=== PATIENT | female | born 1995 | race American Indian/Alaskan Native ===

== ENCOUNTER 2018-04-04 12:40 | Emergency (ER) | payer BC ==
[2018-04-04] MEDS ORDERED: ZOFRAN IV ONE (13:34)
[2018-04-04] MEDS ORDERED: PEPCID IV ONE (13:34)
[2018-04-04] MEDS ORDERED: NACL 0.9% 1000 ML 1,000 ML IV ONE (13:34)
--- NOTE | 2018-04-04 13:39 | Emergency Department Report ---
ED Abdominal Pain HPI - General Chief Complaint: Abdominal Pain Stated Complaint: ABDOMINAL PAIN Time Seen by Provider: 04/04/18 13:35 Source: patient Mode of arrival: Ambulatory Limitations: No Limitations - History of Present Illness Initial Comments: Patient reports abdominal pain, nausea, 3 episodes of vomiting and diarrhea that started yesterday. She reports last menstrual period was 03/30/18 Complaint: abdominal pain Onset/Timin -: hour(s) Location: epigastric Radiation: none Migration to: no migration Severity: severe Severity scale (0 -10): 8 Quality: cramping Consistency: constant Improves With: nothing Worsens With: eating, bowel movement Context: sick contacts Associated Symptoms: nausea, vomiting, diarrhea. denies: fever, chills, constipation, dysuria, hematemesis, hematochezia, anorexia, syncope Treatments Prior to Arrival: other (none) - Related Data LMP Date: 03/30/18 Previous Rx's Medication Instructions Recorded Last Taken Type Famotidine [Pepcid] 20 mg PO BID #20 tablet 04/04/18 Unknown Rx Ondansetron [Zofran TAB] 4 mg PO Q8HR PRN #6 tablet 04/04/18 Unknown Rx Allergies Allergy/AdvReac Type Severity Reaction Status Date / Time No Known Allergies Allergy Unverified 04/04/18 13:55 ED Review of Systems ROS: Stated complaint: ABDOMINAL PAIN Other details as noted in HPI Constitutional: denies: chills, fever Eyes: denies: eye pain, eye discharge, vision change ENT: denies: ear pain, throat pain Respiratory: denies: cough, shortness of breath, wheezing Cardiovascular: denies: chest pain, palpitations Endocrine: no symptoms reported Gastrointestinal: abdominal pain, nausea, vomiting, diarrhea Genitourinary: denies: urgency, dysuria, discharge Musculoskeletal: denies: back pain, joint swelling, arthralgia Skin: denies: rash, lesions Neurological: denies: headache, weakness, paresthesias Psychiatric: denies: anxiety, depression Hematological/Lymphatic: denies: easy bleeding, easy bruising ED Past Medical Hx - Past Medical History Previous Medical History?: No - Surgical History Past Surgical History?: No - Social History Smoking Status: Never Smoker Substance Use Type: None - Medications Home Medications: Home Medications Medication Instructions Recorded Confirmed Last Taken Type Famotidine [Pepcid] 20 mg PO BID #20 tablet 04/04/18 Unknown Rx Ondansetron [Zofran TAB] 4 mg PO Q8HR PRN #6 tablet 04/04/18 Unknown Rx ED Physical Exam - General Limitations: No Limitations General appearance: alert, in no apparent distress - ENT ENT exam: Present: normal exam, mucous membranes moist - Neck Neck exam: Present: normal inspection, full ROM. Absent: tenderness, meningismus, lymphadenopathy, thyromegaly - Respiratory Respiratory exam: Present: normal lung sounds bilaterally. Absent: respiratory distress, wheezes, rales, rhonchi, stridor - Cardiovascular Cardiovascular Exam: Present: regular rate, normal rhythm, normal heart sounds. Absent: systolic murmur, diastolic murmur, rubs, gallop - GI/Abdominal GI/Abdominal exam: Present: soft, tenderness (epigastric), hyperactive bowel sounds. Absent: distended, guarding, rebound, rigid, normal bowel sounds, diminished bowel sounds - Extremities Exam Extremities exam: Present: normal inspection, full ROM, normal capillary refill. Absent: tenderness, pedal edema, joint swelling, calf tenderness - Back Exam Back exam: Present: normal inspection, full ROM. Absent: tenderness, CVA tenderness (R), CVA tenderness (L) - Neurological Exam Neurological exam: Present: alert, oriented X3, CN II-XII intact, normal gait, reflexes normal. Absent: motor sensory deficit - Psychiatric Psychiatric exam: Present: normal affect, normal mood - Skin Skin exam: Present: warm, dry, intact, normal color. Absent: rash ED Course Vital Signs 04/04/18 04/04/18 12:47 15:37 Temperature 98.7 F Pulse Rate 91 H 86 Respiratory 16 Rate Blood Pressure 111/71 Blood Pressure 116/70 [Left] O2 Sat by Pulse 99 99 Oximetry - Reevaluation(s) Reevaluation #1: 04/04/18 13:37 Normal saline, antiemetic, antacid and laboratory studies ordered ED Medical Decision Making - Lab Data Result diagrams: 04/04/18 13:57 04/04/18 13:57 Lab Results 04/04/18 04/04/18 04/04/18 Range/Units 13:54 13:57 13:57 WBC 8.7 (4.5-11.0) K/mm3 RBC 5.22 H (3.65-5.03) M/mm3 Hgb 11.4 (10.1-14.3) gm/dl Hct 36.1 (30.3-42.9) % MCV 69 L (79-97) fl MCH 22 L (28-32) pg MCHC 32 (30-34) % RDW 16.0 H (13.2-15.2) % Lymph % (Auto) 14.0 (13.4-35.0) % [place] % (Auto) 4.8 (0.0-7.3) % Eos % (Auto) 0.8 (0.0-4.3) % Baso % (Auto) 0.1 (0.0-1.8) % Lymph # 1.2 (1.2-5.4) K/mm3 [place] # 0.4 (0.0-0.8) K/mm3 Eos # 0.1 (0.0-0.4) K/mm3 Baso # 0.0 (0.0-0.1) K/mm3 Seg Neutrophils % 80.3 H (40.0-70.0) % Seg Neutrophils # 7.0 (1.8-7.7) K/mm3 Sodium 138 (137-145) mmol/L Potassium 3.9 (3.6-5.0) mmol/L Chloride 103.7 (98-107) mmol/L Carbon Dioxide 21 L (22-30) mmol/L Anion Gap 17 mmol/L BUN 13 (7-17) mg/dL Creatinine 0.7 (0.7-1.2) mg/dL Estimated GFR > 60 ml/min BUN/Creatinine Ratio 19 % Glucose 90 (65-100) mg/dL Calcium 8.3 L (8.4-10.2) mg/dL Total Bilirubin 1.90 H (0.1-1.2) mg/dL AST 14 (5-40) units/L ALT 8 (7-56) units/L Alkaline Phosphatase 48 (35-129) units/L Total Protein 7.0 (6.3-8.2) g/dL Albumin 3.6 L (3.9-5) g/dL Albumin/Globulin Ratio 1.1 % Lipase 17 (13-60) units/L HCG, Quant (0-4) mIU/mL Urine Color Yellow (Yellow) Urine Turbidity Clear (Clear) Urine pH 6.0 (5.0-7.0) Ur Specific [place] 1.023 (1.003-1.030) Urine Protein <15 mg/dl (Negative) mg/dL Urine Glucose (UA) Neg (Negative) mg/dL Urine Ketones Neg (Negative) mg/dL Urine Blood Neg (Negative) Urine Nitrite Neg (Negative) Urine Bilirubin Neg (Negative) Urine Urobilinogen 2.0 (<2.0) mg/dL Ur Leukocyte Esterase Neg (Negative) Urine WBC (Auto) 1.0 (0.0-6.0) /HPF Urine RBC (Auto) 1.0 (0.0-6.0) /HPF U Epithel Cells (Auto) 3.0 (0-13.0) /HPF Urine Mucus Few /HPF 04/04/18 Range/Units 13:57 WBC (4.5-11.0) K/mm3 RBC (3.65-5.03) M/mm3 Hgb (10.1-14.3) gm/dl Hct (30.3-42.9) % MCV (79-97) fl MCH (28-32) pg MCHC (30-34) % RDW (13.2-15.2) % Lymph % (Auto) (13.4-35.0) % [place] % (Auto) (0.0-7.3) % Eos % (Auto) (0.0-4.3) % Baso % (Auto) (0.0-1.8) % Lymph # (1.2-5.4) K/mm3 [place] # (0.0-0.8) K/mm3 Eos # (0.0-0.4) K/mm3 Baso # (0.0-0.1) K/mm3 Seg Neutrophils % (40.0-70.0) % Seg Neutrophils # (1.8-7.7) K/mm3 Sodium (137-145) mmol/L Potassium (3.6-5.0) mmol/L Chloride (98-107) mmol/L Carbon Dioxide (22-30) mmol/L Anion Gap mmol/L BUN (7-17) mg/dL Creatinine (0.7-1.2) mg/dL Estimated GFR ml/min BUN/Creatinine Ratio % Glucose (65-100) mg/dL Calcium (8.4-10.2) mg/dL Total Bilirubin (0.1-1.2) mg/dL AST (5-40) units/L ALT (7-56) units/L Alkaline Phosphatase (35-129) units/L Total Protein (6.3-8.2) g/dL Albumin (3.9-5) g/dL Albumin/Globulin Ratio % Lipase (13-60) units/L HCG, Quant < 2 (0-4) mIU/mL Urine Color (Yellow) Urine Turbidity (Clear) Urine pH (5.0-7.0) Ur Specific [place] (1.003-1.030) Urine Protein (Negative) mg/dL Urine Glucose (UA) (Negative) mg/dL Urine Ketones (Negative) mg/dL Urine Blood (Negative) Urine Nitrite (Negative) Urine Bilirubin (Negative) Urine Urobilinogen (<2.0) mg/dL Ur Leukocyte Esterase (Negative) Urine WBC (Auto) (0.0-6.0) /HPF Urine RBC (Auto) (0.0-6.0) /HPF U Epithel Cells (Auto) (0-13.0) /HPF Urine Mucus /HPF Temp Pulse Resp BP Pulse Ox 98.7 F 91 H 111/71 99 04/04/18 12:47 04/04/18 12:47 04/04/18 12:47 04/04/18 12:47 - Medical Decision Making During the course of ED, antiemetic, antacid, Normal saline and laboratory studies were ordered. The patient reports nausea/vomiting much better after medication administration. She was sent home with prescriptions for Zofran and Pepcid, instructed to drink clear liquids for the next 24 hours, she verbalized understanding - Differential Diagnosis N/V/D, Abdominal Pain Critical care attestation.: If time is entered above; I have spent that time in minutes in the direct care of this critically ill patient, excluding procedure time. ED Disposition Clinical Impression: Nausea & vomiting Qualifiers: Vomiting type: unspecified Vomiting Intractability: non-intractable Qualified Code(s): R11.2 - Nausea with vomiting, unspecified Diarrhea Qualifiers: Diarrhea type: unspecified type Qualified Code(s): R19.7 - Diarrhea, unspecified Disposition: -01 TO HOME OR SELFCARE Is pt being admited?: No Does the pt Need Aspirin: No Condition: Stable Instructions: Acute Nausea and Vomiting (ED), Acute Diarrhea (ED) Additional Instructions: Take medication as directed. Follow-up with her primary care doctor this week. Drink clear liquids for the next 24 hours, then advance to a bland diet. Return back to the ED for worsening symptoms or concerns Prescriptions: Famotidine [Pepcid] 20 mg PO BID #20 tablet Ondansetron [Zofran TAB] 4 mg PO Q8HR PRN #6 tablet PRN Reason: nausea/vomiting Referrals: PRIMARY CARE,MD [Primary Care Provider] - 3-5 Days [facility] [Outside] - 3-5 Days Forms: Work/School Release Form(ED) Time of Disposition: 15:29
[2018-04-04 14:13] LABS: Basophils % (Auto) 0.1 % (0.0-1.8); Eosinophils # (Auto) 0.1 K/mm3 (0.0-0.4); Eosinophils % (Auto) 0.8 % (0.0-4.3); Hematocrit 36.1 % (30.3-42.9); Hemoglobin 11.4 gm/dl (10.1-14.3); Lymphocytes # (Auto) 1.2 K/mm3 (1.2-5.4); Mean Corpuscular HGB Conc 32 % (30-34); Monocytes # (Auto) 0.4 K/mm3 (0.0-0.8); Monocytes % (Auto) 4.8 % (0.0-7.3); Red Blood Count 5.22 M/mm3 (3.65-5.03)
[2018-04-04 14:20] LABS: Mean Corpuscular Hemoglobin 22 pg (28-32); Mean Corpuscular Volume 69 fl (79-97)
[2018-04-04 14:23] LABS: Bilirubin,Urine NEG (Negative); Blood,Urine NEG (Negative); Color,Urine Yellow (Yellow); Mucus,Urine FEW /HPF; Protein,Urine <15 mg/dL mg/dL (Negative)
[2018-04-04 14:37] LABS: Alanine Aminotransferase 8 units/L (7-56); Albumin 3.6 g/dL (3.9-5); BUN/Creatinine Ratio 19; Blood Urea Nitrogen 13 mg/dL (7-17); Calcium 8.3 mg/dL (8.4-10.2); Hemolysis Index 4; Lipase 17 units/L (13-60)
[2018-04-04 14:56] LABS: Platelet Count 167 K/mm3 (140-440)
[2018-04-04 15:39] VITALS: BP 116/70
== END 2018-04-04 15:37 | disposition home or self-care (01) ==
LOC: ED 12:40
DX: R11.2 Nausea with vomiting, unspecified (principal); R19.7 Diarrhea, unspecified
CPT/HCPCS: 36415; 80053; 81001; 83690; 84702; 85025; 96361; 96374; 96375; 99283; J2405; J7030

== ENCOUNTER 2018-07-16 12:08 | Emergency (ER) | payer BC ==
[2018-07-16 12:18] VITALS: BP 118/73
[2018-07-16 14:00] LABS: Bilirubin,Urine NEG (Negative); Blood,Urine NEG (Negative); Color,Urine Yellow (Yellow); Mucus,Urine FEW /HPF; Protein,Urine <15 mg/dL mg/dL (Negative); Urobilinogen,Urine < 2.0 mg/dL (<2.0); WBC,Urine < 1.0 /HPF (0.0-6.0)
[2018-07-16 14:01] LABS: HCG Qualitative,Urine Negative (Negative)
--- NOTE | 2018-07-16 14:54 | Emergency Department Report ---
ED Abdominal Pain HPI - General Chief Complaint: Abdominal Pain Stated Complaint: STOMACH/SIDE/BACK PAIN Time Seen by Provider: 07/16/18 14:26 Source: patient Mode of arrival: Ambulatory Limitations: No Limitations - History of Present Illness Initial Comments: 23-year-old female presents to ED with complaints of lower abdominal pain. Patient states pain has been present for "a couple months. " Patient reports pain was initially worse at night, but now pain can occur at any time. Denies aggravating or alleviating factors. Denies vaginal bleeding, vaginal discharge , dysuria, urinary frequency, nausea, vomiting, fever MD Complaint: abdominal pain -: month(s) (2) Location: suprapubic Radiation: none Migration to: no migration Severity: mild Quality: sharp Consistency: intermittent Improves With: nothing Worsens With: nothing Associated Symptoms: denies: nausea, vomiting, diarrhea, fever, dysuria, hematuria - Related Data Previous Rx's Medication Instructions Recorded Last Taken Type Famotidine [Pepcid] 20 mg PO BID #20 tablet 04/04/18 Unknown Rx Ondansetron [Zofran TAB] 4 mg PO Q8HR PRN #6 tablet 04/04/18 Unknown Rx Naproxen [Naprosyn] 500 mg PO BID #20 tablet 07/16/18 Unknown Rx Allergies Allergy/AdvReac Type Severity Reaction Status Date / Time No Known Allergies Allergy Verified 07/16/18 12:14 ED Review of Systems ROS: Stated complaint: STOMACH/SIDE/BACK PAIN Other details as noted in HPI Comment: All other systems reviewed and negative Constitutional: denies: chills, fever Gastrointestinal: abdominal pain. denies: nausea, vomiting, diarrhea Genitourinary: denies: dysuria, frequency, hematuria, discharge, abnormal menses , dyspareunia ED Past Medical Hx - Past Medical History Previous Medical History?: No - Surgical History Past Surgical History?: No - Social History Smoking Status: Never Smoker Substance Use Type: None - Medications Home Medications: Home Medications Medication Instructions Recorded Confirmed Last Taken Type Famotidine [Pepcid] 20 mg PO BID #20 tablet 04/04/18 Unknown Rx Ondansetron [Zofran TAB] 4 mg PO Q8HR PRN #6 tablet 04/04/18 Unknown Rx Naproxen [Naprosyn] 500 mg PO BID #20 tablet 10/06/18 Unknown Rx ED Physical Exam - General Limitations: No Limitations General appearance: alert, in no apparent distress - Head Head exam: Present: atraumatic, normocephalic - Eye Eye exam: Present: normal appearance - ENT ENT exam: Present: mucous membranes moist - Neck Neck exam: Present: normal inspection - Respiratory Respiratory exam: Present: normal lung sounds bilaterally. Absent: respiratory distress - Cardiovascular Cardiovascular Exam: Present: regular rate, normal rhythm - GI/Abdominal GI/Abdominal exam: Present: soft. Absent: tenderness - External exam: Present: normal external exam Speculum exam: Present: vaginal discharge (small amount of white discharge present). Absent: cervical discharge, vaginal bleeding Bi-manual exam: Present: normal bi-manual exam. Absent: cervical motion tendernes - Extremities Exam Extremities exam: Present: normal inspection - Back Exam Back exam: Present: normal inspection. Absent: CVA tenderness (R), CVA tenderness (L) - Neurological Exam Neurological exam: Present: alert, oriented X3 - Psychiatric Psychiatric exam: Present: normal affect, normal mood - Skin Skin exam: Present: warm, dry, intact, normal color. Absent: rash ED Course Vital Signs 07/16/18 12:14 Temperature 98.5 F Pulse Rate 96 H Respiratory 16 Rate Blood Pressure 118/73 O2 Sat by Pulse 96 Oximetry ED Medical Decision Making - Radiology Data Radiology results: report reviewed - Medical Decision Making 23-year-old female with pelvic pain for several months. Unremarkable pelvic exam, year is negative for UTI, test negative. Ultrasound shows no acute findings. Pt states she has an [employer] and can follow-up with them. We' ll give prescription for Naprosyn - Differential Diagnosis uti, , ovarian cyst Critical care attestation.: If time is entered above; I have spent that time in minutes in the direct care of this critically ill patient, excluding procedure time. ED Disposition Clinical Impression: Pelvic pain Disposition: - TO HOME OR SELFCARE Is pt being admited?: No Condition: Stable Instructions: Chronic Pelvic Pain in Women (ED) Referrals: PRIMARY CARE, [Primary Care Provider] - 3-5 Days Time of Disposition: 18:22
--- NOTE | 2018-07-16 17:52 | Ultrasound Report ---
FINAL REPORT EXAM: US TRANSVAGINAL HISTORY: pelvic pain TECHNIQUE: Transvaginal Grayscale, color flow and Doppler waveform imaging of the pelvis was performed. Comparison: Transabdominal study also performed today FINDINGS: The uterus measures 7.2 centimeters x 3.4 centimeters x 4.5 centimeters and is unremarkable in appearance. Endometrial thickness measures 10 millimeters. The cervix is unremarkable in appearance. The right ovary measures 4.1 centimeter x 2.4 centimeter x 2.9 centimeter, is normal in appearance and contains follicles. There is a crenated follicle which may represent an involuting follicle or involuting corpus luteum cyst. The left ovary measures 2.6 centimeters x 1.7 centimeters x 3.1 centimeters, is normal in appearance and contains follicles. Arterial and venous flow is demonstrated in both ovaries utilizing color flow and Doppler waveform imaging. No free fluid is demonstrated in the pelvis. IMPRESSION: 1. Ultrasound pelvis within normal limits. 2. Crenated follicle right ovary which may represent an involuting follicle or involuting corpus luteum cyst. 3. No ultrasound evidence of ovarian torsion.
--- NOTE | 2018-07-16 17:55 | Ultrasound Report ---
FINAL REPORT EXAM: US PELVIS DUPLEX DOPPLER COMP HISTORY: pelvic pain TECHNIQUE: Transabdominal grayscale and color-flow imaging of the pelvis was performed. Comparison: Transvaginal ultrasound also performed today FINDINGS: The urinary bladder is moderately distended and unremarkable in appearance. The uterus measures 7.2 centimeters x 3.4 centimeters x 4.5 centimeters and is unremarkable in appearance. The left ovary measures 2.2 centimeters x 1.5 centimeters x 2.8 centimeters, is normal in appearance and contains follicles. Flow is demonstrated in the left ovary utilizing color flow imaging. The right ovary measures 3.4 centimeters x 2.5 centimeters x 3.3 centimeters, is normal in appearance and contains follicles. There is a crenated follicle in the right ovary which may represent an involuting follicle or involuting corpus luteum cyst. Flow is demonstrated in the right ovary utilizing color flow imaging. No free fluid is demonstrated in the pelvis. IMPRESSION: 1. Ultrasound pelvis within normal limits. 2. Possible involuting follicle or involuting corpus luteum cyst right ovary. Please see report of transvaginal ultrasound pelvis also performed today.
== END 2018-07-16 18:39 | disposition home or self-care (01) ==
LOC: ED 12:08
DX: R10.2 Pelvic and perineal pain (principal)
CPT/HCPCS: 76830; 81001; 81025; 87210; 87591; 93975

== ENCOUNTER 2018-12-26 20:19 | Emergency (ER) | payer BC ==
[2018-12-26 21:59] VITALS: BP 105/73
[2018-12-27 01:35] LABS: HCG Qualitative,Urine Negative (Negative)
--- NOTE | 2018-12-27 01:56 | XRay Report ---
PROCEDURE: XR CHEST ROUTINE 2V TECHNIQUE: PA and lateral view of the chest were submitted. HISTORY: productive cough COMPARISONS: None FINDINGS: The lungs are clear. Pleural fluid is not seen. The heart size is normal. The bones and soft tissues are well-maintained. IMPRESSION: Within normal limits.. This document is electronically signed by Cooper Rothman MD., December 27 2018 01:54:21 AM ET
[2018-12-27] MEDS ORDERED: TYLENOL PO ONE (02:54)
[2018-12-27] MEDS ORDERED: TYLENOL ONE (02:55)
--- NOTE | 2018-12-27 03:36 | Emergency Department Report ---
- General Chief Complaint: Upper Respiratory Infection Stated Complaint: FLU Time Seen by Provider: 12/27/18 02:56 Source: patient Mode of arrival: Ambulatory Limitations: No Limitations - History of Present Illness Initial Comments: Pt is a 23 yo female with no PMHx who presents to the ED with c/o generalized body aches that began 3-4 days ago. She has associated dry cough, rhinorrhea, and congestion. The patient denies any ear ache, fever, or sore throat currently. She denies any sick contacts. - Related Data Previous Rx's Medication Instructions Recorded Last Taken Type Famotidine [Pepcid] 20 mg PO BID #20 tablet 04/04/18 Unknown Rx Ondansetron [Zofran TAB] 4 mg PO Q8HR PRN #6 tablet 04/04/18 Unknown Rx Benzonatate [Tessalon Perles] 100 mg PO Q8HR PRN #20 capsule 12/27/18 Unknown Rx Fluticasone [Flonase] 1 spray NS QDAY #1 bottle 12/27/18 Unknown Rx guaiFENesin [Mucinex] 600 mg PO BID #14 tab.er.12h 12/27/18 Unknown Rx Allergies Allergy/AdvReac Type Severity Reaction Status Date / Time No Known Allergies Allergy Verified 07/16/18 12:14 ED Review of Systems ROS: Stated complaint: FLU Other details as noted in HPI Comment: All other systems reviewed and negative ED Past Medical Hx - Past Medical History Previous Medical History?: No - Surgical History Past Surgical History?: No - Social History Smoking Status: Never Smoker - Medications Home Medications: Home Medications Medication Instructions Recorded Confirmed Last Taken Type Famotidine [Pepcid] 20 mg PO BID #20 tablet 04/04/18 Unknown Rx Ondansetron [Zofran TAB] 4 mg PO Q8HR PRN #6 tablet 04/04/18 Unknown Rx Benzonatate [Tessalon Perles] 100 mg PO Q8HR PRN #20 capsule 12/27/18 Unknown Rx Fluticasone [Flonase] 1 spray NS QDAY #1 bottle 12/27/18 Unknown Rx guaiFENesin [Mucinex] 600 mg PO BID #14 tab.er.12h 12/27/18 Unknown Rx ED Physical Exam - General Limitations: No Limitations General appearance: alert, in no apparent distress - Head Head exam: Present: atraumatic, normocephalic - Eye Eye exam: Present: normal appearance - ENT ENT exam: Present: normal orophraynx, mucous membranes moist, TM's normal bilaterally, other (edema and mild erythema of the nasal turbinates, no purulent discharge, no sinus TTP) - Respiratory Respiratory exam: Present: normal lung sounds bilaterally. Absent: respiratory distress, wheezes, rales, rhonchi, stridor, chest wall tenderness, accessory muscle use, decreased breath sounds, prolonged expiratory - Cardiovascular Cardiovascular Exam: Present: regular rate, normal rhythm, normal heart sounds. Absent: systolic murmur, rubs, gallop - Neurological Exam Neurological exam: Present: alert, oriented X3 - Psychiatric Psychiatric exam: Present: normal affect, normal mood - Skin Skin exam: Present: warm, dry, intact ED Course Vital Signs 12/26/18 12/27/18 21:58 00:17 Temperature 98.7 F 98.7 F Pulse Rate 89 91 H Respiratory 18 18 Rate Blood Pressure 105/73 105/73 O2 Sat by Pulse 100 100 Oximetry ED Medical Decision Making - Radiology Data Radiology results: report reviewed PROCEDURE: XR CHEST ROUTINE 2V TECHNIQUE: PA and lateral view of the chest were submitted. HISTORY: productive cough COMPARISONS: None FINDINGS: The lungs are clear. Pleural fluid is not seen. The heart size is normal. The bones and soft tissues are well-maintained. IMPRESSION: Within normal limits.. This document is electronically signed by Cooper Rothman MD., December 27 2018 01:54:21 AM ET - Medical Decision Making Pt presents to the ED with generalized body aches, dry cough, rhinorrhea, and congestion for 3-4 days. CXR with no acute process. VSS. Afebrile. Will tx symptomatically for URI. Advised to follow up with primary care doctor in the next 2-3 days. Return to the ED for any new or worsening symptoms. Critical care attestation.: If time is entered above; I have spent that time in minutes in the direct care of this critically ill patient, excluding procedure time. ED Disposition Clinical Impression: Upper respiratory infection Qualifiers: URI type: unspecified URI Qualified Code(s): J06.9 - Acute upper respiratory infection, unspecified Disposition: TO HOME OR SELFCARE Is pt being admited?: No Does the pt Need Aspirin: No Condition: Stable Instructions: Upper Respiratory Infection (ED) Additional Instructions: Follow up with your primary care in the next 2-3 days. Return to the emergency room for any new or worsening symptoms. Can use tylenol/motrin for body aches. Prescriptions: Fluticasone [Flonase] 1 spray NS QDAY #1 bottle guaiFENesin [Mucinex] 600 mg PO BID #14 tab.er.12h Benzonatate [Tessalon Perles] 100 mg PO Q8HR PRN #20 capsule PRN Reason: Cough Referrals: YOJANA SOLORIO MD [Primary Care Provider] - 2-3 Days Time of Disposition: 03:36 Print Language: HAITIAN
== END 2018-12-27 03:40 | disposition home or self-care (01) ==
LOC: ED 20:19
DX: J06.9 Acute upper respiratory infection, unspecified (principal)
CPT/HCPCS: 71046; 81025